=== PATIENT | female | born 2000 | race Caucasian/White ===

== ENCOUNTER 2024-04-30 02:39 | Emergency (ER) | payer OTHER ==
[~2024-04-30] VITALS: Ht 167.6 cm; Wt 53.0 kg
[2024-04-30 02:46] VITALS: PULSE 88
[2024-04-30 02:47] VITALS: BP 128/88; RESP 20; O2SAT 100
[2024-04-30 03:21] LABS: CLARITY URINE CLEAR (CLEAR); COLOR URINE YELLOW (YELLOW); GLUCOSE URINE NEGATIVE (NEGATIVE); KETONES URINE NEGATIVE (NEGATIVE); LEUKOCYTE ESTERASE URINE NEGATIVE (NEGATIVE); NITRITE URINE NEGATIVE (NEGATIVE); OCCULT BLOOD URINE 3+ (NEGATIVE); PH URINE 6.5 (4.5-8.0); PROTEIN URINE NEGATIVE (NEGATIVE); SPECIFIC GRAVITY URINE 1.004 (1.005-1.030); UROBILINOGEN URINE 0.2 E.U./dL (0.2-1.0)
[2024-04-30 04:39] LABS: SQUAMOUS EPITHELIAL CELL URINE FEW /lpf (RARE/1+)
[2024-04-30 04:41] LABS: BACTERIA URINE NONE SEEN; WBC URINE 0-2 /hpf (0-2)
[2024-04-30] MEDS ORDERED: NITR-87 MT (05:49)
== END 2024-04-30 05:56 | disposition home or self-care (01) ==
LOC: ER 03:12
DX: R35.0 Frequency of micturition (principal)
CPT/HCPCS: 81003; 81025; 99283